=== PATIENT | male | born 2000 | race Caucasian/White ===

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

== ENCOUNTER → 2018-05-12 | Outpatient (CLI) | payer OTHER | LOC: LAB 15:39 | DX: R19.7 Diarrhea, unspecified (principal) ==

== ENCOUNTER → 2018-10-02 | Outpatient (CLI) | payer BC ==
[~2018-10-02] VITALS: Ht 188 cm; Wt 65.5 kg
[2018-10-02 13:00] VITALS: BP 129/57
== END ==
LOC: AMSURD 13:03
DX: I49.9 Cardiac arrhythmia, unspecified (principal); R63.0 Anorexia

== ENCOUNTER → 2018-10-02 | Outpatient (CLI) | payer BC ==
[2018-10-02 12:41] LABS: EOS % 0.5 % (0.0-4.0); HEMATOCRIT 47.3 % (36.0-47.0); HEMOGLOBIN 16.2 g/dL (12.5-16.1); MEAN CELL VOLUME 93 fl (78-95); MEAN CORPUSCULAR HEMOGLOBIN 32 pg (26-32); MEAN CORPUSCULAR HGB CONC 34 g/dL (33-37); MEAN PLATELET VOLUME 11.9 fl (7.4-10.4); MONO # 0.6 (0.20-0.80); NEU # 6.4 (1.40-6.50); PLATELET COUNT 155 K/mm3 (130-400); RED BLOOD COUNT 5.11 M/mm3 (4.20-5.60); RED CELL DISTRIBUTION WIDTH 12.5 % (11.5-14.5)
[2018-10-02 13:09] LABS: ALBUMIN 4.8 g/dL (3.5-5.0); POTASSIUM 3.9 mmol/L (3.5-5.1)
[2018-10-02 13:10] LABS: CALCIUM 9.8 mg/dL (8.3-10.5)
[2018-10-02 13:11] LABS: TOTAL PROTEIN 7.6 g/dL (6.4-8.3)
[2018-10-02 13:13] LABS: TOTAL BILIRUBIN 0.6 mg/dL (0.2-1.2)
== END ==
LOC: AMSURD 12:30 → LAB 12:30
PROVIDERS: Family Medicine
DX: I49.9 Cardiac arrhythmia, unspecified (principal); R63.0 Anorexia

== ENCOUNTER → 2018-10-09 | Outpatient (CLI) | payer BC ==
[2018-10-02 13:00] VITALS: BP 129/57
== END ==
LOC: LAB 14:52
DX: J38.7 Other diseases of larynx (principal); R14.0 Abdominal distension (gaseous); R53.83 Other fatigue; R11.0 Nausea; R73.9 Hyperglycemia, unspecified